=== PATIENT | male | born 1985 | race American Indian/Alaskan Native ===

== ENCOUNTER 2018-06-03 14:30 | Emergency (ER) | payer MEDICAID ==
[2018-06-03 15:25] VITALS: BP 132/79; PULSE 96; RESP 20; TEMP 98.4; O2SAT 99
--- NOTE | 2018-06-03 15:54 | C.PDOC ---
History Of Present Illness 32-year-old male presents to the ED complaining of tremors to hands that began this morning. Patient states he was on Risperdal, and states they stopped giving his medications on the 8th at [facility] because they ran out. He began feeling tremulous upon waking up this morning. Otherwise he denies any SOB, palpitations, vomiting, pain, fevers, or chills. He also denies suicidal ideation, homicidal ideation, and hallucinations. Time Seen by Provider: 06/03/18 15:26 Chief Complaint (Nursing): Substance Abuse History Per: Patient History/Exam Limitations: no limitations Onset/Duration Of Symptoms: Hrs Current Symptoms Are (Timing): Still Present Suicide/Self Injury Attempted (Context): None Associated Symptoms: denies: Suicidal Thoughts, Suicidal Plan Involuntary Hold By: None Additional History Per: Prior Records Past Medical History Reviewed: Historical Data, Nursing Documentation, Vital Signs Vital Signs: Last Vital Signs Temp 98.4 F 06/03/18 15:06 Pulse 96 H 06/03/18 15:06 Resp 20 06/03/18 15:06 BP 132/79 06/03/18 15:06 Pulse Ox 99 06/03/18 15:06 - Medical History PMH: Anxiety, Schizophrenia Family History: States: Unknown Family Hx - Social History Hx Tobacco Use: Yes Hx Alcohol Use: No Hx Substance Use: No - Immunization History Hx Tetanus Toxoid Vaccination: No Hx Influenza Vaccination: No Hx Pneumococcal Vaccination: No Review Of Systems Constitutional: Negative for: Fever, Sweats Eyes: Negative for: Vision Change Cardiovascular: Negative for: Chest Pain, Palpitations Respiratory: Negative for: Shortness of Breath Gastrointestinal: Negative for: Nausea, Vomiting, Abdominal Pain Musculoskeletal: Positive for: Other (tremors) Neurological: Negative for: Weakness, Dizziness Psych: Positive for: Withdrawal (from risperdal). Negative for: Suicidal ideation Physical Exam - Physical Exam Appears: Well, Non-toxic, No Acute Distress Skin: Warm, Dry, No Rash Head: Atraumatic, Normacephalic Eye(s): bilateral: Normal Inspection Oral Mucosa: Moist Neck: Normal ROM Chest: Symmetrical Cardiovascular: Rhythm Regular, No Murmur Respiratory: Normal Breath Sounds, No Rales, No Rhonchi, No Wheezing Gastrointestinal/Abdominal: Bowel Sounds (active), Soft, No Tenderness, No Guarding Extremity: Bilateral: Atraumatic, Normal Color And Temperature, Other (hand tremors bilaterally) Neurological/Psych: Oriented x3, Normal Speech ED Course And Treatment O2 Sat by Pulse Oximetry: 99 (RA) Pulse Ox Interpretation: Normal Medical Decision Making Medical Decision Making: Impression: tremors, needs medicine refill Plan: track service worker to see and evaluate patient. Attempt to contact staff member Stephan at [facility] [phone] and [phone] with no answer. Per personal care worker there is no psychiatric concern, patient is not homicidal or suicidal and cannot refill any meds from ED. Patient needs to return to [facility] and speak with his doctor on staff. Disposition Counseled Patient/Family Regarding: Diagnosis, Need For Followup - Disposition Disposition: HOME/ ROUTINE Disposition Time: 16:51 Condition: STABLE Additional Instructions: Patient needs to see psychiatrist or primary physician for further evaluation and refill of his medications Instructions: Side Effects From Medicines Forms: [employer] (French) - POA Present On Arrival: None - Clinical Impression Clinical Impression: Medication side effect - PA / FITNESS/WELLNESS DIRECTOR / Resident Statement MD/DO has reviewed & agrees with the documentation as recorded. - Scribe Statement The provider has reviewed the documentation as recorded by the Shwetaibkami Holland All medical record entries made by the Frederick were at my direction and personally dictated by me. I have reviewed the chart and agree that the record accurately reflects my personal performance of the history, physical exam, medical decision making, and the department course for this patient. I have also personally directed, reviewed, and agree with the discharge instructions and disposition.
== END 2018-06-03 17:14 | disposition home or self-care (01) ==
LOC: C.ER 14:30
DX: T43.595A Adverse effect of other antipsychotics and neuroleptics, initial encounter (principal); G25.2 Other specified forms of tremor